=== PATIENT | female | born 1975 | race African-American/Black ===

== ENCOUNTER → 2017-07-14 | Outpatient (CLI) | payer BC ==
[~2017-07-14] MED LIST: AMOX500T PO; Z.0.NO CURRENT MEDS
--- NOTE | 2017-07-14 12:04 | EKG ---
Date Performed: 07/14/2017 Time Performed: 10:25:53 PTAGE: 42 years EKG: SINUS BRADYCARDIA BORDERLINE ECG NO PREVIOUS TRACING DOCTOR: Hardik Davis Interpretating Date/Time 07/14/2017 12:03:28
== END ==
LOC: HCAV 10:14
PROVIDERS: ATTEND Nurse Practitioner
DX: Z01.810 Encounter for preprocedural cardiovascular examination (principal)
CPT/HCPCS: 93005

== ENCOUNTER → 2017-08-27 | Day surgery (SDC) | payer BC ==
[~2017-08-27] VITALS: Ht 162.6 cm; Wt 99.9 kg
[~2017-08-27] MED LIST changes: +*morphine SULFATE 4 MG/ML PERIprocedure ONLY ONE; +ACETAMINOPHEN 1000 MG/100 ML 100 ML IV SCH; +ACETAMINOPHEN 325MG/HYDROcodone 7.5MG/15ML UDC PO PRN; +AMOX500C PO; +APREPITANT 40 MG CAP PO SCH; +BUPIVACAINE LIPOSOME PF 1.3% 20 ML VIAL ONE; +BUPIVACAINE/EPINEPHRINE 0.25% 50 ML VIAL ONE; +CHLORHEXIDINE GLUCONATE 2 % 1 PACK (2 CLOTHS) TOPICAL PRN; +CLAR500T PO; +D5-1/2 NS + KCL 20 MEQ INJ 1,000 ML IV SCH; +DEXAMETHASONE SOD PHOS 4 MG/ML VIAL IV ONE; +DO NOT ADM ANY ANTICOAGULANT DRUGS PRN; +ENOXAPARIN SODIUM 40 MG/0.4 ML SYRINGE SQ SCH; +GLYCOPYRROLATE 1 MG/5 ML SYRINGE IV PUSH ONE; +LACTATED RINGER'S 1000 ML INJ 1,000 ML IV ONE; +LACTATED RINGER'S 1000 ML IV PRN; +LANS30CA PO; +LIDOCAINE HCL 1% PF 5 ML SYRINGE OTHER ONE; +METOCLOPRAMIDE HCL 10 MG/2 ML VIAL IV PUSH PRN; +METOCLOPRAMIDE HCL 10 MG/2 ML VIAL IV PUSH SCH; +METOPROLOL TARTRATE 25 MG TAB PO PRN; +NEOSTIGMINE 5 MG/5 ML SYRINGE IV PUSH ONE; +ONDANSETRON HCL 4 MG/2 ML VIAL IV ONE; +ONDANSETRON HCL 4 MG/2 ML VIAL IV PUSH PRN; +ONDANSETRON HCL 4 MG/2 ML VIAL IV PUSH SCH; +PANTOPRAZOLE SOD 40 MG DELAYED RELEASE TAB PO SCH; +PHENYLEPH/NS 1000 MCG/10 ML SYR IV ONE; +POVIDONE IODINE 5% (ANTISEPSIS KIT) 4 APPLICATIONS EACH NARE PRN; +PROPOFOL 200 MG/20 ML AMP IV ONE; +Post-op Orders (for Pharmacy) OTHER ONE; +REMOVE OLD SCOPOLAMINE PATCH T-DERMAL SCH; +ROCURONIUM INJ 50 MG/5 ML SYRINGE IV PUSH ONE; +SCOPOLAMINE 1.5 MG PATCH T-DERMAL SCH; +SODIUM CHLOR 0.45% 500 ML INJ 500 ML IV ONE; +SODIUM CHLORID 0.9% 500 ML IV PRN; +SODIUM CHLORIDE 0.9% 20 ML VIAL ONE; +SODIUM CHLORIDE 0.9% FLUSH 10 ML FLUSH IV FLUSH PRN; +SODIUM CHLORIDE 0.9% FLUSH 10 ML FLUSH IV FLUSH SCH; +ceFAZolin 2 GM PREMIX 50 ML IV SCH; +diphenhydrAMINE HCL 50 MG/ML VIAL IV PUSH PRN; +diphenhydrAMINE HCL ELIXIR 12.5 MG/5 ML CUP PO PRN; +ePHEDrine/NS 25 MG/5 ML SYRINGE IV ONE
--- NOTE | 2017-08-27 08:56 | HHI.PR ---
Immediate Post Op Note Procedure Date: Aug 27, 2017 Pre Op Diagnosis: morbid obesity bmi 36.5, hypercholestremia Post Op Diagnosis: same Surgeon: Patrick Benitez MD Cutting Pressman(s): see or sheet Procedure: lap sleeve gastrectomy Findings: no leak with methylene blue Complications: none Specimen(s) removed: none Estimated blood loss: 5cc Anesthesia: General Drains: None Patient to: PACU Patient Condition: Good Patrick Benitez MD Aug 27, 2017 08:56
[2017-08-27 12:45] VITALS: BP 119/69; PULSE 73; RESP 16; TEMP 97.2; O2SAT 99
--- NOTE | 2017-08-28 08:30 | MP ---
cc: ADALBERTO BENITEZ MD DATE OF SURGERY 08/27/2017 PREOPERATIVE DIAGNOSIS Morbid obesity, BMI of 36.5, hypercholesteremia. POSTOPERATIVE DIAGNOSIS Morbid obesity, BMI of 36.5, hypercholesteremia. PROCEDURE PERFORMED Laparoscopic sleeve gastrectomy with [address] Adalberto Benitez ESTIMATING ENGINEER Siria LEONARD. IV FLUIDS See anesthesia sheet. ESTIMATED BLOOD LOSS 10 cc. DRAINS None. COMPLICATIONS None. WOUND CLASSIFICATION Clean/contaminated. SPECIMENS None. INDICATION The patient is a 42-year-old female who presents with multiple attempts at weight loss without success. The patient with a history of morbid obesity, BMI of 36.5 and comorbidities include hypercholesteremia. Decision was made for laparoscopic sleeve gastrectomy. We discussed with the patient in detail, agreed and would like to proceed. DETAILS OF PROCEDURE The patient was taken to the operating suite, placed in supine position. She was prepped and draped in the usual sterile fashion after induction of general endotracheal anesthesia. A brief time-out was done stating the correct patient, procedure and the surgical site. We were all in agreement with this. Attention was first directed 15-cm distal to the xyphoid, local anesthetic injected including Exparel. A 5-mm ViSiGi port was introduced under direct visualization, the abdomen insufflated to 15 mm pneumoperitoneum. Several other ports were placed including a 15-mm right lower quadrant, followed by two 5-mm left lower quadrant ports and a right upper quadrant liver retractor 5-mm port. Local anesthetic was placed at all port sites. Placed again under direct visualization. The patient was placed in reverse Trendelenburg and airplaned to the right. Pita-Flex retractor was placed to retract the left lower of the liver. Vasculature was taken down to the greater curvature of the stomach using harmonic scalpel, 5 cm from the proximal pylorus and carried all the way up to the angle of His. The angle of His was taken down bluntly. Posterior attachments were also taken down this way. This was done using harmonic scalpel. Next the 36 ViSiGI bougie was advanced down toward the pylorus. This was used as caliber device to calibrate the assistance in facilitating sleeve gastrectomy. Sleeve gastrectomy was fashioned to remove approximately 80% of the stomach. This was done with Endo-KEYANA stapler, initial black load, followed by green loads and several gold loads. This was done with reinforced SeamGuard. This was done 2 cm from the angle incisura up to the staple line at a distance of 1 cm from the GE junction. After the stomach was removed, methylene blue was instilled x1, syringe of 60 cc without evidence of extravasation. The gastrocolic ligament was sutured to the staple line in a running fashion with V-Loc 2-0 unidirectional suture. Hemostasis was obtained. A small little bleeding point had 10-mm clip applied for adequate hemostasis x2 fátima near the distal gastrocolic ligament. Next, the stomach was removed from the 15-mm right lower quadrant port. The fascia was closed with a 0 Vicryl and a suture passer device. Pneumoperitoneum was removed. All ports were removed. Prior to this Evicel was placed to the suture line to improve hemostasis. The ports were removed under direct vision. 4-0 Monocryl was used to close the subcuticular skin incisions. All lap and instrument counts were correct at the end of the procedure. The patient tolerated the procedure. No intraoperative complication. The patient was extubated and taken in stable condition to the PACU. MD MEHUL Francis/GUTIERREZ /3:51 PM /7:58 AM
== END | disposition home or self-care (01) ==
LOC: HSDC 05:38
PROVIDERS: ATTEND Surgery
DX: E66.01 Morbid (severe) obesity due to excess calories (principal); E78.00 Pure hypercholesterolemia, unspecified; Z68.36 Body mass index [BMI] 36.0-36.9, adult
CPT/HCPCS: 00797; 43775; C9290; J0131; J0690; J1100; J1650; J2270; J2370; J2405; J2710; J3010; J3480; J7120; J8501